=== PATIENT | male | born 1960 | race Caucasian/White ===

== ENCOUNTER 2021-09-02 21:05 | Inpatient (IN) ==
[2021-09-03] MEDS ORDERED: Dextrose Gel 15 GM/37.5 ML TUBE PO PRN ×2 (17:34)
[2021-09-03] MEDS ORDERED: D5% in Water 1,000 ML IVC PRN (17:34)
[2021-09-03] MEDS ORDERED: *HR* Dextrose 50 % in Water (Syg) 50 ML SYRINGE IVP PRN (17:34)
[2021-09-03] MEDS ORDERED: Ondansetron ODT 4 MG TAB.RAPDIS SL PRN (17:38)
[2021-09-03] MEDS: Gabapentin 300 MG CAPSULE PO SCH (22:12)
[2021-09-03] MEDS: *HR* OxyCODONE/APAP 5/325 TABLET PO PRN (22:13)
[2021-09-03] MEDS: hydrALAZINE 25 MG TABLET PO SCH (22:13)
[2021-09-03] MEDS: Insulin LISPRO 300 UNITS/3 ML VIAL SUBQ SCH (22:14)
[2021-09-04 07:30] LABS: Basophils % 0.4 %; Eosinophils # 0.3 K/mcL (0.0-0.6); Eosinophils % 6.4 %; Hemoglobin 7.9 g/dL (12.9-16.9); Immature Granulocytes % 0.2 % (0-4); Lymphocytes # 1.1 K/mcL (0.6-4.6); Lymphocytes % 22.3 %; Mean Corpuscular HGB Conc 31.6 g/dL (31.6-35.5); Mean Corpuscular Hemoglobin 30.7 pg (28.0-33.3); Mean Corpuscular Volume 97.3 fL (83.0-100.0); Mean Platelet Volume 9.3 fL (9.4-12.4); Monocytes # 0.6 K/mcL (0.0-1.3); Monocytes % 13.2 %; Neutrophils # 2.7 K/mcL (1.6-8.9); Platelet Count 237 K/mcL (140-400); Red Blood Count 2.57 M/mcL (4.19-5.50); Red Cell Distribution Width 11.8 % (11.5-14.5); Segmented Neutrophils % 57.5 %; White Blood Count 4.7 K/mcL (4.3-11.1)
[2021-09-04 07:38] LABS: Calcium 8.1 mg/dL (8.6-10.3); Potassium 4.8 mEq/L (3.5-5.1)
[2021-09-04] MEDS: *HR* Rivaroxaban 10 MG TABLET PO SCH (09:12)
[2021-09-04] MEDS: hydrALAZINE 25 MG TABLET PO SCH ×2 (09:12→23:29)
[2021-09-04] MEDS: Gabapentin 300 MG CAPSULE PO SCH ×2 (09:12→23:29)
[2021-09-04] MEDS: *HR* Pioglitazone 45 MG TABLET PO SCH (09:12)
[2021-09-04] MEDS: *HR* GlipiZIDE XL (24 HR) 10 MG TABLET PO SCH (09:12)
[2021-09-04] MEDS: polyethylene glycoL 3350 17 GM POWD.PACK PO SCH (09:12)
[2021-09-04] MEDS: Insulin LISPRO 300 UNITS/3 ML VIAL SUBQ SCH ×4 (09:15→23:26)
[2021-09-04] MEDS: *HR* OxyCODONE/APAP 5/325 TABLET PO PRN ×2 (14:38→23:28)
[2021-09-04] MEDS: FEBUXOSTAT 40 MG PO SCH (16:13)
[2021-09-05] MEDS: Insulin LISPRO 300 UNITS/3 ML VIAL SUBQ SCH ×4 (09:49→19:46)
[2021-09-05] MEDS: *HR* Pioglitazone 45 MG TABLET PO SCH (09:52)
[2021-09-05] MEDS: *HR* Rivaroxaban 10 MG TABLET PO SCH (09:53)
[2021-09-05] MEDS: hydrALAZINE 25 MG TABLET PO SCH ×2 (09:53→19:44)
[2021-09-05] MEDS: *HR* GlipiZIDE XL (24 HR) 10 MG TABLET PO SCH (09:53)
[2021-09-05] MEDS: Gabapentin 300 MG CAPSULE PO SCH ×2 (09:53→19:44)
[2021-09-05] MEDS: polyethylene glycoL 3350 17 GM POWD.PACK PO SCH (09:53)
[2021-09-05] MEDS: *HR* OxyCODONE/APAP 5/325 TABLET PO PRN (10:09)
[2021-09-06] MEDS: polyethylene glycoL 3350 17 GM POWD.PACK PO SCH (08:24)
[2021-09-06] MEDS: *HR* Rivaroxaban 10 MG TABLET PO SCH (08:27)
[2021-09-06] MEDS: hydrALAZINE 25 MG TABLET PO SCH ×2 (08:27→19:52)
[2021-09-06] MEDS: *HR* Pioglitazone 45 MG TABLET PO SCH (08:28)
[2021-09-06] MEDS: Gabapentin 300 MG CAPSULE PO SCH ×2 (08:28→19:53)
[2021-09-06] MEDS: *HR* GlipiZIDE XL (24 HR) 10 MG TABLET PO SCH (08:28)
[2021-09-06] MEDS: Insulin LISPRO 300 UNITS/3 ML VIAL SUBQ SCH ×4 (08:39→22:48)
[2021-09-06] MEDS: FEBUXOSTAT 40 MG PO SCH (17:56)
[2021-09-06] MEDS: *HR* OxyCODONE/APAP 5/325 TABLET PO PRN (18:00)
[2021-09-07] MEDS: Insulin LISPRO 300 UNITS/3 ML VIAL SUBQ SCH ×4 (07:07→22:41)
[2021-09-07] MEDS: hydrALAZINE 25 MG TABLET PO SCH ×2 (09:35→22:39)
[2021-09-07] MEDS: *HR* GlipiZIDE XL (24 HR) 10 MG TABLET PO SCH (09:36)
[2021-09-07] MEDS: *HR* Pioglitazone 45 MG TABLET PO SCH (09:36)
[2021-09-07] MEDS: polyethylene glycoL 3350 17 GM POWD.PACK PO SCH (09:36)
[2021-09-07] MEDS: Gabapentin 300 MG CAPSULE PO SCH ×2 (09:36→22:39)
[2021-09-07] MEDS: *HR* Rivaroxaban 10 MG TABLET PO SCH (09:36)
[2021-09-07] MEDS: *HR* OxyCODONE/APAP 5/325 TABLET PO PRN ×2 (09:45→23:56)
[2021-09-08] MEDS: Insulin LISPRO 300 UNITS/3 ML VIAL SUBQ SCH ×4 (08:39→21:38)
[2021-09-08] MEDS: polyethylene glycoL 3350 17 GM POWD.PACK PO SCH ×2 (09:12→20:59)
[2021-09-08] MEDS: *HR* Rivaroxaban 10 MG TABLET PO SCH (09:13)
[2021-09-08] MEDS: Gabapentin 300 MG CAPSULE PO SCH ×2 (09:13→20:58)
[2021-09-08] MEDS: *HR* Pioglitazone 45 MG TABLET PO SCH (09:13)
[2021-09-08] MEDS: hydrALAZINE 25 MG TABLET PO SCH ×2 (09:13→20:58)
[2021-09-08] MEDS: *HR* GlipiZIDE XL (24 HR) 10 MG TABLET PO SCH (09:13)
[2021-09-08 18:12] LABS: Hematocrit 27.3 % (37.5-50.1); Hemoglobin 8.4 g/dL (12.9-16.9); Mean Corpuscular HGB Conc 30.8 g/dL (31.6-35.5); Mean Corpuscular Hemoglobin 30.7 pg (28.0-33.3); Mean Corpuscular Volume 99.6 fL (83.0-100.0); Mean Platelet Volume 8.7 fL (9.4-12.4); Platelet Count 336 K/mcL (140-400); Red Blood Count 2.74 M/mcL (4.19-5.50); White Blood Count 5.5 K/mcL (4.3-11.1)
[2021-09-08 18:21] LABS: Calcium 8.2 mg/dL (8.6-10.3); Potassium 4.8 mEq/L (3.5-5.1)
[2021-09-08] MEDS: *HR* OxyCODONE/APAP 5/325 TABLET PO PRN (23:40)
[2021-09-09] MEDS: Insulin LISPRO 300 UNITS/3 ML VIAL SUBQ SCH ×4 (08:26→20:11)
[2021-09-09] MEDS: Gabapentin 300 MG CAPSULE PO SCH ×2 (09:18→20:12)
[2021-09-09] MEDS: *HR* Rivaroxaban 10 MG TABLET PO SCH (09:18)
[2021-09-09] MEDS: *HR* Pioglitazone 45 MG TABLET PO SCH (09:18)
[2021-09-09] MEDS: polyethylene glycoL 3350 17 GM POWD.PACK PO SCH ×3 (09:19→21:16)
[2021-09-09] MEDS: hydrALAZINE 25 MG TABLET PO SCH ×2 (09:19→20:13)
[2021-09-09] MEDS: *HR* GlipiZIDE XL (24 HR) 10 MG TABLET PO SCH (09:19)
[2021-09-09] MEDS: FEBUXOSTAT 40 MG PO SCH (16:23)
[2021-09-10] MEDS: Insulin LISPRO 300 UNITS/3 ML VIAL SUBQ SCH ×4 (07:44→20:35)
[2021-09-10] MEDS: Gabapentin 300 MG CAPSULE PO SCH ×2 (09:03→20:37)
[2021-09-10] MEDS: polyethylene glycoL 3350 17 GM POWD.PACK PO SCH ×2 (09:03→20:38)
[2021-09-10] MEDS: *HR* Pioglitazone 45 MG TABLET PO SCH (09:04)
[2021-09-10] MEDS: *HR* Rivaroxaban 10 MG TABLET PO SCH (09:10)
[2021-09-10] MEDS: *HR* GlipiZIDE XL (24 HR) 10 MG TABLET PO SCH (09:10)
[2021-09-10] MEDS: hydrALAZINE 25 MG TABLET PO SCH ×2 (09:10→20:37)
[2021-09-10] MEDS ORDERED: Furosemide 20 MG TABLET PO ONE (12:07)
[2021-09-10] MEDS: *HR* OxyCODONE/APAP 5/325 TABLET PO PRN (12:13)
[2021-09-11 06:30] LABS: Hematocrit 26.8 % (37.5-50.1); Mean Corpuscular HGB Conc 29.9 g/dL (31.6-35.5); Mean Corpuscular Hemoglobin 30.3 pg (28.0-33.3); Mean Corpuscular Volume 101.5 fL (83.0-100.0); Mean Platelet Volume 9.1 fL (9.4-12.4); Platelet Count 377 K/mcL (140-400); Red Blood Count 2.64 M/mcL (4.19-5.50); Red Cell Distribution Width 12.1 % (11.5-14.5); White Blood Count 5.2 K/mcL (4.3-11.1)
[2021-09-11 06:51] LABS: Calcium 8.5 mg/dL (8.6-10.3); Potassium 4.4 mEq/L (3.5-5.1)
[2021-09-11] MEDS: Insulin LISPRO 300 UNITS/3 ML VIAL SUBQ SCH ×4 (07:22→21:52)
[2021-09-11] MEDS: *HR* Rivaroxaban 10 MG TABLET PO SCH (08:50)
[2021-09-11] MEDS: *HR* Pioglitazone 45 MG TABLET PO SCH (08:50)
[2021-09-11] MEDS: Gabapentin 300 MG CAPSULE PO SCH ×2 (08:50→21:52)
[2021-09-11] MEDS: hydrALAZINE 25 MG TABLET PO SCH ×2 (08:50→21:52)
[2021-09-11] MEDS: polyethylene glycoL 3350 17 GM POWD.PACK PO SCH ×2 (08:51→23:16)
[2021-09-11] MEDS: *HR* GlipiZIDE XL (24 HR) 10 MG TABLET PO SCH (08:51)
[2021-09-11] MEDS: FEBUXOSTAT 40 MG PO SCH (16:46)
[2021-09-11] MEDS: *HR* OxyCODONE/APAP 5/325 TABLET PO PRN (21:57)
[2021-09-12] MEDS: Insulin LISPRO 300 UNITS/3 ML VIAL SUBQ SCH ×4 (09:29→21:35)
[2021-09-12] MEDS: Gabapentin 300 MG CAPSULE PO SCH ×2 (09:48→21:31)
[2021-09-12] MEDS: *HR* GlipiZIDE XL (24 HR) 10 MG TABLET PO SCH (09:49)
[2021-09-12] MEDS: *HR* Rivaroxaban 10 MG TABLET PO SCH (09:49)
[2021-09-12] MEDS: hydrALAZINE 25 MG TABLET PO SCH ×2 (09:49→21:31)
[2021-09-12] MEDS: *HR* Pioglitazone 45 MG TABLET PO SCH (09:49)
[2021-09-12] MEDS: polyethylene glycoL 3350 17 GM POWD.PACK PO SCH ×2 (09:50→21:34)
[2021-09-12] MEDS: *HR* OxyCODONE/APAP 5/325 TABLET PO PRN (15:59)
[2021-09-13] MEDS: Insulin LISPRO 300 UNITS/3 ML VIAL SUBQ SCH ×4 (08:25→20:52)
[2021-09-13] MEDS: polyethylene glycoL 3350 17 GM POWD.PACK PO SCH ×2 (08:26→20:52)
[2021-09-13] MEDS: *HR* Rivaroxaban 10 MG TABLET PO SCH (08:27)
[2021-09-13] MEDS: Gabapentin 300 MG CAPSULE PO SCH ×2 (08:28→20:51)
[2021-09-13] MEDS: *HR* Pioglitazone 45 MG TABLET PO SCH (08:28)
[2021-09-13] MEDS: hydrALAZINE 25 MG TABLET PO SCH ×2 (08:29→20:51)
[2021-09-13] MEDS: *HR* GlipiZIDE XL (24 HR) 10 MG TABLET PO SCH (08:30)
[2021-09-13] MEDS: *HR* OxyCODONE/APAP 5/325 TABLET PO PRN (12:09)
[2021-09-13] MEDS: FEBUXOSTAT 40 MG PO SCH (16:18)
[2021-09-14] MEDS: *HR* OxyCODONE/APAP 5/325 TABLET PO PRN (02:16)
[2021-09-14] MEDS: hydrALAZINE 25 MG TABLET PO SCH ×2 (09:25→20:22)
[2021-09-14] MEDS: Gabapentin 300 MG CAPSULE PO SCH ×2 (09:26→20:22)
[2021-09-14] MEDS: *HR* Pioglitazone 45 MG TABLET PO SCH (09:26)
[2021-09-14] MEDS: *HR* GlipiZIDE XL (24 HR) 10 MG TABLET PO SCH (09:27)
[2021-09-14] MEDS: *HR* Rivaroxaban 10 MG TABLET PO SCH (09:27)
[2021-09-14] MEDS: polyethylene glycoL 3350 17 GM POWD.PACK PO SCH ×2 (09:28→20:22)
[2021-09-14] MEDS: Acetaminophen 325 MG TABLET PO PRN (09:29)
[2021-09-14] MEDS: Insulin LISPRO 300 UNITS/3 ML VIAL SUBQ SCH ×4 (09:30→20:26)
[2021-09-15] MEDS: *HR* Rivaroxaban 10 MG TABLET PO SCH (10:12)
[2021-09-15] MEDS: polyethylene glycoL 3350 17 GM POWD.PACK PO SCH ×2 (10:12→21:01)
[2021-09-15] MEDS: *HR* Pioglitazone 45 MG TABLET PO SCH (10:12)
[2021-09-15] MEDS: hydrALAZINE 25 MG TABLET PO SCH ×2 (10:12→21:00)
[2021-09-15] MEDS: Gabapentin 300 MG CAPSULE PO SCH ×2 (10:12→21:01)
[2021-09-15] MEDS: *HR* GlipiZIDE XL (24 HR) 10 MG TABLET PO SCH (10:12)
[2021-09-15] MEDS: Insulin LISPRO 300 UNITS/3 ML VIAL SUBQ SCH ×4 (10:12→20:52)
[2021-09-15] MEDS: Acetaminophen 325 MG TABLET PO PRN (21:00)
[2021-09-16] MEDS: *HR* Pioglitazone 45 MG TABLET PO SCH (08:31)
[2021-09-16] MEDS: Gabapentin 300 MG CAPSULE PO SCH ×2 (08:31→19:40)
[2021-09-16] MEDS: Acetaminophen 325 MG TABLET PO PRN (08:32)
[2021-09-16] MEDS: hydrALAZINE 25 MG TABLET PO SCH ×2 (08:32→19:40)
[2021-09-16] MEDS: polyethylene glycoL 3350 17 GM POWD.PACK PO SCH ×2 (08:33→19:41)
[2021-09-16] MEDS: *HR* GlipiZIDE XL (24 HR) 10 MG TABLET PO SCH (08:33)
[2021-09-16] MEDS: *HR* Rivaroxaban 10 MG TABLET PO SCH (08:33)
[2021-09-16] MEDS: Insulin LISPRO 300 UNITS/3 ML VIAL SUBQ SCH ×3 (08:34→16:47)
[2021-09-16] MEDS: FEBUXOSTAT 40 MG PO SCH (17:05)
[2021-09-16] MEDS: *HR* OxyCODONE/APAP 5/325 TABLET PO PRN (19:40)
[2021-09-17] MEDS: *HR* OxyCODONE/APAP 5/325 TABLET PO PRN ×3 (04:05→21:06)
[2021-09-17] MEDS: *HR* Pioglitazone 45 MG TABLET PO SCH (08:56)
[2021-09-17] MEDS: *HR* GlipiZIDE XL (24 HR) 10 MG TABLET PO SCH (08:57)
[2021-09-17] MEDS: Gabapentin 300 MG CAPSULE PO SCH ×2 (08:57→21:06)
[2021-09-17] MEDS: hydrALAZINE 25 MG TABLET PO SCH ×2 (08:57→21:06)
[2021-09-17] MEDS: *HR* Rivaroxaban 10 MG TABLET PO SCH (08:57)
[2021-09-17] MEDS: polyethylene glycoL 3350 17 GM POWD.PACK PO SCH ×2 (08:58→21:06)
[2021-09-18] MEDS: hydrALAZINE 25 MG TABLET PO SCH ×2 (08:05→21:39)
[2021-09-18] MEDS: *HR* GlipiZIDE XL (24 HR) 10 MG TABLET PO SCH (08:05)
[2021-09-18] MEDS: *HR* Rivaroxaban 10 MG TABLET PO SCH (08:05)
[2021-09-18] MEDS: polyethylene glycoL 3350 17 GM POWD.PACK PO SCH ×2 (08:05→21:39)
[2021-09-18] MEDS: *HR* Pioglitazone 45 MG TABLET PO SCH (08:06)
[2021-09-18] MEDS: Gabapentin 300 MG CAPSULE PO SCH ×2 (08:06→21:38)
[2021-09-18] MEDS: *HR* OxyCODONE/APAP 5/325 TABLET PO PRN ×2 (11:53→21:38)
[2021-09-18] MEDS: FEBUXOSTAT 40 MG PO SCH (16:35)
[2021-09-19 08:35] LABS: Hematocrit 27.4 % (37.5-50.1); Mean Corpuscular HGB Conc 29.2 g/dL (31.6-35.5); Mean Corpuscular Hemoglobin 30.1 pg (28.0-33.3); Mean Platelet Volume 9.3 fL (9.4-12.4); Platelet Count 238 K/mcL (140-400); Red Blood Count 2.66 M/mcL (4.19-5.50); Red Cell Distribution Width 12.4 % (11.5-14.5); White Blood Count 4.4 K/mcL (4.3-11.1)
[2021-09-19 09:01] LABS: Calcium 8.8 mg/dL (8.6-10.3); Potassium 5.2 mEq/L (3.5-5.1)
[2021-09-19] MEDS: polyethylene glycoL 3350 17 GM POWD.PACK PO SCH ×2 (10:06→20:53)
[2021-09-19] MEDS: *HR* Pioglitazone 45 MG TABLET PO SCH (10:06)
[2021-09-19] MEDS: Gabapentin 300 MG CAPSULE PO SCH ×2 (10:07→20:52)
[2021-09-19] MEDS: hydrALAZINE 25 MG TABLET PO SCH ×2 (10:07→20:52)
[2021-09-19] MEDS: *HR* Rivaroxaban 10 MG TABLET PO SCH (10:07)
[2021-09-19] MEDS: *HR* OxyCODONE/APAP 5/325 TABLET PO PRN ×2 (10:07→20:59)
[2021-09-19] MEDS: *HR* GlipiZIDE XL (24 HR) 2.5 MG TABLET PO SCH (10:08)
[2021-09-19] MEDS: Insulin LISPRO 300 UNITS/3 ML VIAL SUBQ SCH (20:50)
[2021-09-20 07:23] VITALS: RESP 16
[2021-09-20] MEDS: Insulin LISPRO 300 UNITS/3 ML VIAL SUBQ SCH ×4 (07:47→20:34)
[2021-09-20] MEDS: *HR* Pioglitazone 45 MG TABLET PO SCH (09:22)
[2021-09-20] MEDS: *HR* GlipiZIDE XL (24 HR) 2.5 MG TABLET PO SCH (09:23)
[2021-09-20] MEDS: Gabapentin 300 MG CAPSULE PO SCH ×2 (09:23→20:02)
[2021-09-20] MEDS: hydrALAZINE 25 MG TABLET PO SCH ×2 (09:23→20:01)
[2021-09-20] MEDS: *HR* Rivaroxaban 10 MG TABLET PO SCH (09:24)
[2021-09-20] MEDS: polyethylene glycoL 3350 17 GM POWD.PACK PO SCH ×2 (09:25→20:02)
[2021-09-20] MEDS: FEBUXOSTAT 40 MG PO SCH (17:16)
[2021-09-20] MEDS: *HR* OxyCODONE/APAP 5/325 TABLET PO PRN (20:02)
[2021-09-21 07:06] VITALS: BP 146/68; PULSE 69; TEMP 97.5; O2SAT 95
[2021-09-21] MEDS: hydrALAZINE 25 MG TABLET PO SCH (07:34)
[2021-09-21] MEDS: *HR* GlipiZIDE XL (24 HR) 2.5 MG TABLET PO SCH (07:35)
[2021-09-21] MEDS: Gabapentin 300 MG CAPSULE PO SCH (07:36)
[2021-09-21] MEDS: *HR* Pioglitazone 45 MG TABLET PO SCH (07:36)
[2021-09-21] MEDS: polyethylene glycoL 3350 17 GM POWD.PACK PO SCH (07:37)
[2021-09-21] MEDS: *HR* Rivaroxaban 10 MG TABLET PO SCH (07:37)
[2021-09-21] MEDS: Insulin LISPRO 300 UNITS/3 ML VIAL SUBQ SCH (07:50)
== END 2021-09-21 09:45 | disposition home health service (06) | DRG 560 ==
LOC: INPPIK 09-03 19:08
PROVIDERS: ADMIT Family Medicine; ATTEND Family Medicine